=== PATIENT | female | born 1985 | race Caucasian/White ===

== ENCOUNTER 2017-12-08 07:25 | Inpatient (IN) | payer OTHER ==
[2017-12-08] MEDS ORDERED: AMPICILLIN SODIUM 2 GM VIAL ONE (08:31)
[2017-12-08 08:36] VITALS: BMI 28.5
[2017-12-08] MEDS ORDERED: AMPICILLIN - 2 GM in SODIUM CHLORIDE 100 ML IVPB ONE (08:43)
[2017-12-08] MEDS: ELECTROLYTE-148 SOLN 1,000 ML IV SCH (08:45)
[2017-12-08] MEDS ORDERED: NALOXONE HCL 0.4 MG/ML VIAL IVPUSH PRN (08:46)
[2017-12-08] MEDS ORDERED: FENTANYL/BUPIVACAINE/NS/PF - PCEA - 50 ML DISP.SYRIN EP ONE ×2 (08:46→13:32)
[2017-12-08 08:49] LABS: BASO % 0.7 % (0-2.0); EOS % 1.6 % (0-4.5); HEMATOCRIT 39.5 % (32.4-45.2); HEMOGLOBIN 12.6 GM/dL (10.7-15.3); LYMPH % 13.6 % (8-40); MCH 28.9 pg (25.7-33.7); MEAN CELL VOLUME 90.4 fl (80-96); MEAN PLT VOLUME 8.7 fl (7.5-11.1); MONO % 5.9 % (3.8-10.2); NEUT % 78.2 % (42.8-82.8); PLATELET COUNT 358 K/MM3 (134-434); RBC 4.37 M/mm3 (3.60-5.2); RDW 13.8 % (11.6-15.6); WHITE BLOOD COUNT 15.8 K/mm3 (4.0-10.0)
--- NOTE | 2017-12-08 08:57 | HP ---
Past Medical History - Primary Care Physician PCP:: Jayda Darling - Admission Chief Complaint: 31 yo P0 @ 39.3wks with contructions, no VB, no LOF, +FM History of Present Illness: 1. GBS+ for Ampicillin prophylaxis 2. Depression/Anxiety will monitor for PP depression, consider meds 3. HPV+ for repeat PAP/colpo PP History Source: Patient Limitations to Obtaining History: No Limitations - Past Medical History Reproductive: Yes: Other (HPV+ for repeat PAP and colpo PP) ...: 2 ...Para: 0 ...Term: 0 ...: 0 ...Spon : 0 ...Induced : 1 ...Multiple Gestation: 0 ...LMP: 03/07/17 ... 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 History of Recent Travel: No Home Medications - Allergies Allergies/Adverse Reactions: Allergies Allergy/AdvReac Type Severity Reaction Status Date / Time No Known Allergies Allergy Verified 12/08/17 08:10 - Home Medications Home Medications: Ambulatory Orders Pnv No.95/Ferrous Fum/Folic AC [ Vitamin Tablet] 1 each PO DAILY Family Disease History - Family Disease History Family Disease History: Diabetes: Father Other Family History: Maternal Great aunt - Breast CA Review of Systems - Review of Systems Constitutional: reports: No Symptoms HENT: reports: No Symptoms Neck: reports: No Symptoms Cardiovascular: reports: No Symptoms Respiratory: reports: No Symptoms Gastrointestinal: reports: No Symptoms Genitourinary: reports: Pain (labor contructions) Breasts: reports: No Symptoms Reported Musculoskeletal: reports: No Symptoms Integumentary: reports: No Symptoms Neurological: reports: No Symptoms Endocrine: reports: No Symptoms Hematology/Lymphatic: reports: No Symptoms Psychiatric: reports: No Symptoms Physical Exam - Maternity Vital Signs: Vital Signs Temperature 98.1 F 12/08/17 08:15 Pulse Rate 102 H 12/08/17 08:15 Respiratory Rate 18 12/08/17 08:15 Blood Pressure 123/79 12/08/17 08:15 O2 Sat by Pulse Oximetry (%) Constitutional: Yes: Well Nourished HENT: Yes: WNL Neck: Yes: WNL Cardiovascular: Yes: WNL Lungs: Clear to auscultation Breast(s): Yes: WNL - Abdominal Exam/OB Fundal Height: 39 Number of Fetuses: Single Presentation: Vertex Contractions: Yes Regularity: Regular Intensity: Mod/Strong Monitor Mode: External Heart Rate Location: [facility] Category: I Accelerations: Uniform Decelerations: None - Vaginal Exam/OB Vaginal Bleediing: No Speculum Exam: No Dilatation (cm): 4 Effacement (%): 80% Amniotic Membrane Status: Intact Presentation: Vertex/Position Station: -3 - Physical Exam Musculoskeletal: Yes: WNL Extremities: Yes: WNL Edema: No Integumentary: Yes: WNL Deep Tendon Reflex Grade: Normal +2 ...Motor Strength: WNL Psychiatric: Yes: WNL - Labs Lab Results: CBC, BMP 12/08/17 08:35 Assessment/Plan 31yo P0010 @ 39.3wks in early active labor Admit to L&D Stable, MF status exellent IVF, NPO GBS + Start Ampicillin prophylaxis Desires Epidural for pain management - anesthesia contacted Will plan AROM in 4 hours to augment labor
[2017-12-08] MEDS: FENTANYL/BUPIVACAINE/NS/PF - PCEA - 50 ML DISP.SYRIN EP SCH (09:00)
[2017-12-08] MEDS ORDERED: TUBERCULIN PPD 5 TU/0.1ML SYRINGE (IN PATIENT USE ONLY) ID ONE (09:00)
[2017-12-08 09:06] LABS: ANION GAP 12 (8-16); BLOOD UREA NITROGEN 11 mg/dL (7-18); CALCIUM 8.3 mg/dL (8.5-10.1); CHLORIDE 108 mmol/L (98-107); CO2 18 mmol/L (21-32); CREATININE 0.7 mg/dL (0.55-1.02); GLUCOSE,RANDOM 88 mg/dL (74-106); POTASSIUM 3.9 mmol/L (3.5-5.1); PROTHROMBIN TIME (PATIENT) 11.3 SEC (9.98-11.88); SODIUM 138 mmol/L (136-145)
[2017-12-08 09:09] LABS: ACTIVATED PTT 27.4 SECONDS (26.9-34.4)
[2017-12-08] MEDS: AMPICILLIN - 1 GM in SODIUM CHLORIDE 100 ML IVPB SCH ×2 (12:35→16:47)
--- NOTE | 2017-12-08 13:35 | PN ---
Progress Note, Labor Vaginal Exam #1 Labor Exam Date: 12/08/17 Labor Exam Time: 13:20 Heart Rate (range): 140's + accels, no Decells Dilatation: 6 Effacement (%): 80% Amniotic Membrane Status: Bulging Presentation: Vertex/Position Station: -3 Remarks: 31 yo P0 @39.3wks EFW 6.5lb, adequete pelvis comfortable with epidural Regular ctx on Pitocin of 1Mu/min Category 1 FHR s/p Ampicillin x 2 AROM for augmentation - clear fluid and copious mucous plug continue routine management of labor
[2017-12-08] MEDS ORDERED: OXYTOCIN 30 UNITS in 0.9% NS 30 UNIT/500 ML INFUS.BAG IVPB SCH ×2 (15:00→18:30)
--- NOTE | 2017-12-08 16:10 | PN ---
Progress Note, Labor Vaginal Exam #2 Labor Exam Date: 12/08/17 Labor Exam Time: 16:00 Heart Rate (range): 140's, + accels, + varriability, +varriable decels Dilatation: 8 Effacement (%): 90% Amniotic Membrane Status: Ruptured Presentation: Vertex/Position (ROP) Station: -2 Remarks: 31 yo P0 @ @39.3wks in active labor Adequate progress Category 2, but overall very reassuring FHR, + scalp stimulation on Ampicillin for GBS prophylaxis position changed still on 1Mu/Min of Pitocin cont current management
[2017-12-08] MEDS ORDERED: OXYTOCIN 20 UNITS in 0.9% NS 20 UNIT/1,000 ML INFUS.BAG IV ONE (16:52)
[2017-12-08] MEDS ORDERED: METHYLERGONOVINE MALEATE 0.2 MG/1 ML AMP IM PRN (18:19)
[2017-12-08] MEDS ORDERED: IBUPROFEN 600 MG TABLET (FP) PO PRN (18:19)
[2017-12-08] MEDS ORDERED: BENZOCAINE 20% 57 GM BOTTLE TP PRN (18:19)
[2017-12-08] MEDS ORDERED: ACETAMINOPHEN 325 MG TABLET (FP) PO PRN (18:19)
[2017-12-08] MEDS ORDERED: WITCH HAZEL 50% (TUCKS) 40 PAD/JAR PAD TP PRN (18:19)
[2017-12-08] MEDS ORDERED: BISACODYL 10 MG SUPP.RECT RC PRN (18:19)
[2017-12-08] MEDS ORDERED: BENZOCAINE 28 GM HEMORRHOIDAL OINTMENT TP PRN (18:19)
--- NOTE | 2017-12-08 18:19 | PN ---
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
[2017-12-08] MEDS ORDERED: IBUPROFEN 600 MG TABLET (FP) PO ONE (19:21)
[2017-12-08] MEDS ORDERED: ACETAMINOPHEN 325 MG TABLET (FP) ONE (19:22)
[2017-12-08] MEDS ORDERED: OXYTOCIN 20 UNITS in 0.9% NS 20 UNIT/1,000 ML INFUS.BAG IV SCH (19:45)
[2017-12-09] MEDS: FERROUS SO4 325 MG TABLET (FP) PO SCH ×2 (07:54→18:32)
[2017-12-09 08:28] LABS: HEMATOCRIT 35.1 % (32.4-45.2); HEMOGLOBIN 11.2 GM/dL (10.7-15.3); MCH 29.1 pg (25.7-33.7); MEAN CELL VOLUME 90.7 fl (80-96); MEAN PLT VOLUME 8.3 fl (7.5-11.1); PLATELET COUNT 287 K/MM3 (134-434); RBC 3.87 M/mm3 (3.60-5.2); RDW 13.9 % (11.6-15.6); WHITE BLOOD COUNT 20.2 K/mm3 (4.0-10.0)
[2017-12-09] MEDS: PRENATAL VITAMINS W/ FOLIC ACID TABLET (FP) PO SCH (10:06)
--- NOTE | 2017-12-09 10:24 | PN ---
Post Progress Note Type of Delivery: Vital Signs: Vital Signs Temperature 97.9 F 12/09/17 06:00 Pulse Rate 81 12/09/17 06:00 Respiratory Rate 18 12/09/17 06:00 Blood Pressure 115/57 12/09/17 06:00 O2 Sat by Pulse Oximetry (%) 99 12/08/17 19:30 - Labs Labs: CBC WBC 20.2 K/mm3 (4.0-10.0) H 12/09/17 08:05 RBC 3.87 M/mm3 (3.60-5.2) 12/09/17 08:05 Hgb 11.2 GM/dL (10.7-15.3) D 12/09/17 08:05 Hct 35.1 % (32.4-45.2) 12/09/17 08:05 MCV 90.7 fl (80-96) 12/09/17 08:05 MCH 29.1 pg (25.7-33.7) 12/09/17 08:05 MCHC 32.0 g/dl (32.0-36.0) 12/09/17 08:05 RDW 13.9 % (11.6-15.6) 12/09/17 08:05 Plt Count 287 K/MM3 (134-434) 12/09/17 08:05 MPV 8.3 fl (7.5-11.1) 12/09/17 08:05 Neutrophils % No Result Required. 12/09/17 08:05 Lymphocytes % No Result Required. 12/09/17 08:05 Monocytes % 5.9 % (3.8-10.2) 12/08/17 08:35 Eosinophils % 1.6 % (0-4.5) 12/08/17 08:35 Basophils % 0.7 % (0-2.0) 12/08/17 08:35
[2017-12-09 10:36] LABS: PLATELET ESTIMATE NORMAL
[2017-12-09] MEDS ORDERED: SENNOSIDES/DOCUSATE COMBO (SENNA PLUS) TABLET (UD) PO PRN (22:00)
[2017-12-10 07:53] VITALS: BP 115/74; PULSE 72; TEMP 98.3
[2017-12-10 08:17] LABS: BASO % 0.5 % (0-2.0); EOS % 2.3 % (0-4.5); HEMATOCRIT 33.4 % (32.4-45.2); HEMOGLOBIN 10.7 GM/dL (10.7-15.3); LYMPH % 20.6 % (8-40); MCH 29.3 pg (25.7-33.7); MCHC 32.2 g/dl (32.0-36.0); MEAN PLT VOLUME 8.1 fl (7.5-11.1); MONO % 7.5 % (3.8-10.2); NEUT % 69.1 % (42.8-82.8); PLATELET COUNT 292 K/MM3 (134-434); RBC 3.67 M/mm3 (3.60-5.2); WHITE BLOOD COUNT 12.9 K/mm3 (4.0-10.0)
[2017-12-10] MEDS: FENTANYL/BUPIVACAINE/NS/PF - PCEA - 50 ML DISP.SYRIN EP SCH (09:06)
[2017-12-10] MEDS: ELECTROLYTE-148 SOLN 1,000 ML IV SCH (09:07)
[2017-12-10] MEDS: FERROUS SO4 325 MG TABLET (FP) PO SCH (09:12)
[2017-12-10] MEDS: PRENATAL VITAMINS W/ FOLIC ACID TABLET (FP) PO SCH (09:12)
--- NOTE | 2017-12-10 09:16 | DS ---
Physical Exam-[facility] ARCHITECT Vital Signs: Vital Signs Temperature 98.3 F 12/10/17 07:50 Pulse Rate 72 12/10/17 07:50 Respiratory Rate 18 12/10/17 07:50 Blood Pressure 115/74 12/10/17 07:50 O2 Sat by Pulse Oximetry (%) 99 12/08/17 19:30 Constitutional: Yes: Well Nourished Eyes: Yes: WNL HENT: Yes: WNL Neck: Yes: WNL, Supple Cardiovascular: Yes: WNL, Regular Rate and Rhythm Respiratory: Yes: WNL, Regular, CTA Bilaterally Gastrointestinal: Yes: WNL, Normal Bowel Sounds, Soft ....Post : Yes: Uterus firm, Uterus non-tender Breast(s): Yes: WNL Extremities: Yes: WNL Integumentary: Yes: WNL Neurological: Yes: WNL, Alert, Oriented Psychiatric: Yes: WNL, Alert, Oriented Labs: CBC, BMP 12/10/17 07:50 12/08/17 08:35 Delivery - Delivery Vaginal Delivery: No Problems, Spontaneous Type of Anesthesia: Local, Epidural Episiotomy/Laceration: 2nd degree EBL (cc): 300 Delivery, Single - Stages of Labor Date 1st Stage Initiatied: 12/08/17 Time 1st Stage Initiated: 05:00 Date 2nd Stage Initiated: 12/08/17 Time 2nd Stage Initiated: 17:00 Date of Delivery: 12/08/17 Time of Delivery: 17:49 Time Placenta Delivered: 17:52 Placenta: Yes: Spontaneous - Condition of Senior It Business Analyst/Equipment Engineer Present: Yes Name: RaduNatalia Encarnacion Gender: Male Weight: 7 lb 13 oz Position: OA Total Hours ROM (Hrs/Mins): 4hrs/22mins - 1 Minute Total Score: 9 5 Minutes Total Score: 9 - [place] Feeding Plan Initial Plan: Exclusive throughout hospitalization Benefits of Exclusively reinforced: Yes Discharge Summary Reason For Visit: LABOR ASSESS Procedures: Principal: Normal term 39wk vaginal delivery Hospital Course: Uneventful, delivered Condition: Good - Instructions Diet, Activity, Other Instructions: Physical activity Resume your normal everyday activity as tolerated no heavy lifting or exercise until seen by your surgeon. You may walk unlimited césar of and climb stairs. You may resume driving the car when you feel safe and comfortable behind the wheel. No sexual activity as instructed. Wound care If you have a bandage, leave it on, and keep dry for 48-72 hours. After that time discard the outer bandage. If they are tapes on the skin under the out of bandage leave them in place. They will peel off in the next 7 to 10 days. Do Not Peel them off. You may shower the day after surgery. If there are tapes present on the skin, you may shower over them. Diet There are no dietary restrictions. Eat healthy, high-fiber foods. Drink 6 to 8 glasses of liquid each day. This will assist in keeping your bowels are regular. Pain management You may take Tylenol or acetaminophen or Ibuprofen (for example, Motrin, Advil etc.) from my pain prescription medication is ordered should be taken as prescribed for moderate to severe pain. Call MD for any of the following: Severe pain not relieved by medication Fever of 101 or higher Excessive bleeding or drainage on dressing Inability to urinate Referrals: Jayda Darling MD [Staff Physician] - Disposition: HOME - Home Medications Comprehensive Discharge Medication List: Ambulatory Orders Pnv No.95/Ferrous Fum/Folic AC [ Vitamin Tablet] 1 each PO DAILY
== END 2017-12-10 14:45 | disposition home or self-care (01) | DRG 775 ==
LOC: JDEL 07:25 → JLDR 07:45 → J3W 20:12
PROVIDERS: ADMIT Obstetrics & Gynecology; ATTEND Obstetrics & Gynecology
PROC: 10E0XZZ Delivery of Products of Conception, External Approach (ICD-10-PCS; principal; 2017-12-08)
PROC: 0KQM0ZZ Repair Perineum Muscle, Open Approach (ICD-10-PCS; 2017-12-08)
PROC: 0W8NXZZ Division of Female Perineum, External Approach (ICD-10-PCS; 2017-12-08)
DX: O70.1 Second degree perineal laceration during delivery (principal); Z37.0 Single live birth; O99.344 Other mental disorders complicating childbirth; F41.8 Other specified anxiety disorders; Z3A.39 39 weeks gestation of pregnancy; Z22.330 Carrier of Group B streptococcus
CPT/HCPCS: 36415; 59409; 80048; 85025; 85610; 85730; 86593; 86850; 86900; 86901

== ENCOUNTER 2022-01-08 20:40 | Inpatient (IN) | payer OTHER ==
[2022-01-08] MEDS ORDERED: AMPICILLIN - 2 GM in SODIUM CHLORIDE 100 ML IVPB ONE (22:00)
[2022-01-08] MEDS ORDERED: LIDOCAINE HCL 1% PRESERVATIVE FREE - 30ML VIAL ONE (22:04)
[2022-01-08] MEDS ORDERED: OXYTOCIN 20 UNITS in 0.9% NS 20 UNIT/1,000 ML INFUS.BAG IV ONE (22:04)
[2022-01-08] MEDS ORDERED: AMPICILLIN SODIUM 2 GM VIAL ONE (22:09)
[2022-01-08] MEDS ORDERED: SODIUM CHLORIDE 100 ML IVPB ONE (22:09)
[2022-01-08] MEDS: ELECTROLYTE-148 SOLN 1,000 ML IV SCH (22:15)
[2022-01-08 22:41] LABS: BASO % 0.4 % (0-2.0); EOS % 1.3 % (0-4.5); HEMATOCRIT 38.6 % (32.4-45.2); HEMOGLOBIN 12.8 GM/dL (10.7-15.3); LYMPH % 19.9 % (8-40); MCH 29.6 pg (25.7-33.7); MCHC 33.2 g/dl (32.0-36.0); MEAN CELL VOLUME 89.2 fl (80-96); MEAN PLT VOLUME 7.8 fl (7.5-11.1); MONO % 6.4 % (3.8-10.2); PLATELET COUNT 319 10^3/uL (134-434); RBC 4.33 M/mm3 (3.60-5.2); RDW 15.5 % (11.6-15.6); WHITE BLOOD COUNT 12.8 K/mm3 (4.0-10.0)
[2022-01-08 22:54] LABS: INR 0.97 (0.83-1.09); PROTHROMBIN TIME (PATIENT) 11.2 SEC (9.7-13.0)
[2022-01-08 22:57] LABS: ACTIVATED PTT 26.7 SECONDS (25.2-36.5)
[2022-01-08 23:01] LABS: CALCIUM 8.8 mg/dL (8.5-10.1)
[2022-01-08 23:02] LABS: BLOOD UREA NITROGEN 10.3 mg/dL (7-18)
[2022-01-08 23:05] LABS: CREATININE 0.7 mg/dL (0.55-1.3)
[2022-01-08] MEDS ORDERED: WITCH HAZEL 50% (TUCKS) 40 PAD/JAR PAD TP PRN (23:09)
[2022-01-08] MEDS ORDERED: BISACODYL 10 MG SUPP.RECT RC PRN (23:09)
[2022-01-08] MEDS ORDERED: IBUPROFEN 600 MG TABLET (FP) PO PRN (23:09)
[2022-01-08] MEDS ORDERED: oxyCODONE HCL 5 MG TABLET PO PRN (23:09)
[2022-01-08] MEDS ORDERED: METHYLERGONOVINE MALEATE 0.2 MG/1 ML AMP IM PRN (23:09)
[2022-01-08] MEDS ORDERED: BENZOCAINE 20% 57 GM BOTTLE TP PRN (23:09)
[2022-01-08] MEDS ORDERED: BENZOCAINE 28 GM HEMORRHOIDAL OINTMENT TP PRN (23:09)
[2022-01-08] MEDS ORDERED: ACETAMINOPHEN 325 MG TABLET (FP) PO PRN (23:09)
[2022-01-08] MEDS ORDERED: OXYTOCIN 20 UNITS in 0.9% NS 20 UNIT/1,000 ML INFUS.BAG IV SCH (23:15)
[2022-01-08 23:31] LABS: CORD BASE EXCESS -5.7 mmol/L (0-2); CORD HCO3 18.9 mmHg (20-29); CORD PCO2 34.7 mmHg (30-78); CORD pH 7.354 (7.14-7.44)
[2022-01-08 23:36] LABS: CORD HCO3 20.3 mmHg (20-29); CORD PCO2 47.2 mmHg (30-78); CORD pH 7.251 (7.14-7.44)
[2022-01-08 23:51] VITALS: BMI 29.2
[2022-01-09] MEDS ORDERED: AMPICILLIN - 1 GM in SODIUM CHLORIDE 100 ML IVPB SCH (02:00)
[2022-01-09 09:27] LABS: BASO % 0.4 % (0-2.0); HEMATOCRIT 37.4 % (32.4-45.2); HEMOGLOBIN 12.3 GM/dL (10.7-15.3); LYMPH % 17.2 % (8-40); MCH 29.3 pg (25.7-33.7); MCHC 32.8 g/dl (32.0-36.0); MEAN CELL VOLUME 89.3 fl (80-96); MEAN PLT VOLUME 8.4 fl (7.5-11.1); MONO % 5.8 % (3.8-10.2); NEUT % 75.6 % (42.8-82.8); PLATELET COUNT 309 10^3/uL (134-434); RBC 4.19 M/mm3 (3.60-5.2); RDW 15.8 % (11.6-15.6); WHITE BLOOD COUNT 13.3 K/mm3 (4.0-10.0)
[2022-01-09] MEDS: PRENATAL VITAMINS W/ FOLIC ACID TABLET (FP) PO SCH (10:27)
[2022-01-09] MEDS ORDERED: SENNOSIDES/DOCUSATE COMBO (SENNA PLUS) TABLET (UD) PO PRN (22:00)
[2022-01-09] MEDS: ELECTROLYTE-148 SOLN 1,000 ML IV SCH (22:59)
[2022-01-10 00:24] VITALS: PULSE 67
[2022-01-10] MEDS: PRENATAL VITAMINS W/ FOLIC ACID TABLET (FP) PO SCH (09:14)
[2022-01-10 10:03] VITALS: BP 122/71; TEMP 97.3
== END 2022-01-10 13:00 | disposition home or self-care (01) | DRG 560 ==
LOC: JDEL 20:40 → JLDR 22:05 → J3W 01-09 01:52
PROVIDERS: ADMIT Obstetrics & Gynecology; ATTEND Obstetrics & Gynecology
PROC: 10E0XZZ Delivery of Products of Conception, External Approach (ICD-10-PCS; principal; 2022-01-08)
PROC: 0KQM0ZZ Repair Perineum Muscle, Open Approach (ICD-10-PCS; 2022-01-08)
DX: O70.1 Second degree perineal laceration during delivery (principal); Z3A.38 38 weeks gestation of pregnancy; Z37.0 Single live birth
CPT/HCPCS: 36415; 36600; 59409; 80048; 82803; 85025; 85610; 85730; 86769; 86780; 86850; 86900; 86901